=== PATIENT | male | born 1960 | race Caucasian/White ===

== ENCOUNTER → 2018-09-26 21:20 | Outpatient (REF) | payer OTHER, SELFPAY ==
[2018-09-26 22:27] LABS: Add Manual Diff / Slide Review NO; Basophils Percent Auto 1.8 % (0-2); Eosinophils Percent Auto 1.8 % (2-4); Hemoglobin 16.8 g/dL (13.5-17.5); Lymphocytes Percent Auto 25.2 % (25-40); Mean Corpuscular HGB Conc 33.6 % (30-36); Mean Corpuscular Hemoglobin 32.6 PG (26-34); Mean Corpuscular Volume 97.1 fL (80-100); Monocytes Percent Auto 10.7 % (3-14); Neutrophils Absolute Auto 2900 /uL (1500-7000); Neutrophils Percent Auto 60.5 % (50-75); Platelet Count 299 X10^3/uL (150-400); Red Blood Cell Count 5.15 X10^6/uL (4.5-5.9); White Blood Cell Count 4.8 X10^3/uL (4.5-11.0)
[2018-09-28 16:40] LABS: Sex Hormone Binding Globulin 29 nmol/L (22-77)
[2018-09-29 12:41] LABS: PSA Total 1.09 ng/mL (< 4.01)
[2018-09-29 15:37] LABS: Estradiol 42 pg/mL (< 40)
[2018-09-30 17:20] LABS: Testosterone Free 540.1 pg/mL (35.0-155.0); Testosterone Total 1837 ng/dL (250-1100)
== END ==
LOC: LAB 21:20
PROVIDERS: Visit Provider Naturopath
DX: E29.1 Testicular hypofunction (principal); F90.0 Attention-deficit hyperactivity disorder, predominantly inattentive type
CPT/HCPCS: 36415; 82670; 84153; 84154; 84270; 84402; 84403; 85025

== ENCOUNTER → 2019-01-15 21:41 | Outpatient (REF) | payer OTHER, SELFPAY ==
[2019-01-15 23:26] LABS: Add Manual Diff / Slide Review NO; Basophils Absolute Auto 100 /uL (0-100); Basophils Percent Auto 1.2 % (0-2); Eosinophils Absolute Auto 100 /uL (0-450); Eosinophils Percent Auto 1.9 % (2-4); Hematocrit 50.8 % (41-53); Hemoglobin 16.8 g/dL (13.5-17.5); Lymphocytes Absolute Auto 1300 /uL (1100-4500); Lymphocytes Percent Auto 26.6 % (25-40); Mean Corpuscular HGB Conc 33.1 % (30-36); Mean Corpuscular Hemoglobin 32.4 PG (26-34); Mean Corpuscular Volume 97.9 fL (80-100); Monocytes Absolute Auto 400 /uL (0-900); Neutrophils Absolute Auto 3000 /uL (1500-7000); Neutrophils Percent Auto 61.3 % (50-75); Platelet Count 317 X10^3/uL (150-400); Red Blood Cell Count 5.19 X10^6/uL (4.5-5.9); Red Cell Distribution Width 13.2 % (11.6-14.8); White Blood Cell Count 4.9 X10^3/uL (4.5-11.0)
[2019-01-18 15:52] LABS: PSA Total 1.14 ng/mL (< 4.01)
[2019-01-19 10:45] LABS: Estradiol 20 pg/mL (< 40)
== END ==
LOC: LAB 21:41
PROVIDERS: Visit Provider Naturopath
DX: E29.1 Testicular hypofunction (principal); F90.0 Attention-deficit hyperactivity disorder, predominantly inattentive type; L71.9 Rosacea, unspecified
CPT/HCPCS: 36415; 82670; 84153; 84154; 84270; 84402; 84403; 85025